=== PATIENT | male | born 1970 | race Hispanic/Latino ===

== ENCOUNTER 2016-09-09 16:31 | Emergency (ER) | payer SELFPAY ==
[2016-09-09] MEDS ORDERED: Lidocaine 1% w/Epinephrine 1:100K 30 ML VIAL ONE (17:07)
--- NOTE | 2016-09-09 17:54 | ERRECORD ---
[facility] EMERGENCY RECORD HPI ABSCESS (17:36 MBRI) CHIEF COMPLAINT: Patient presents for evaluation of swelling, Patient presents for evaluation of pain, Patient presents for evaluation of Possible abscess. HISTORIAN: History provided by patient, History provided by patient's family. LOCATION: Symptoms are localized, most severe to Left axilla. QUALITY: Pain is dull in nature, described as aching, described as throbbing. SEVERITY: Maximum severity of symptoms moderate, Currently symptoms are mild. TIME COURSE: Gradual onset of symptoms, 4, days priror to arrival, Symptoms are worsening. ASSOCIATED WITH: No associated chills, No associated drainage, No associated fever, No associated nausea, No associated proximal streaking, Associated with warmth. COMPLICATING FACTORS: No complicating factors for wound healing. EXACERBATED BY: Patient's condition exacerbated by nothing. RELIEVED BY: Patient's condition relieved by nothing, Patient's condition relieved by nothing because patient has not tried anything for relief. TETANUS: Tetanus status up to date. ROS (17:36 MBRI) CONSTITUTIONAL: Negative constitutional review of systems, Historian denies chills, denies fever. CARDIOVASCULAR: Historian denies chest pain, denies dyspnea on exertion. RESPIRATORY: Historian denies cough, denies shortness of breath. GI: Negative gastrointestinal review of systems, Historian denies abdominal pain, denies diarrhea, denies nausea, denies vomiting. MUSCULOSKELETAL: Historian denies joint redness, denies joint stiffness, denies joint swelling. Denies any musculoskeletal pain, Historian denies injury. SKIN: Historian reports cellulitis, reports induration, reports skin lesions. Left axillary area. NEUROLOGIC: Negative neurologic review of systems, Historian denies focal weakness, denies sensory changes. HEMO/LYMPHATIC: Historian denies abnormal blood clotting, denies easy bruising. PAST MEDICAL HISTORY (16:59 KMOR) MEDICAL HISTORY: No past medical history, Flu vaccine not up to date, Tetanus immunization up to date, Pneumococcal vaccine not up to date. MALE SURGICAL HISTORY: Patient has no surgical history. PSYCHIATRIC HISTORY: No previous psychiatric history. SOCIAL HISTORY: Patient denies alcohol use, Patient denies drug use, Patient has no smoking history. &a-1R&a+25V*p+0X*i7847Q*c202B*c15G*c2P*p-0X&a-25V&a+1R Name: Christiane Vanegas : 1970 M46 MedRec: [id number] AcctNum: [id number] Prepared: FriSep 10, 2016 09:28 by Interface Page 1 of 3 pMD [facility] EMERGENCY RECORD KNOWN ALLERGIES No Known Drug Allergies CURRENT MEDICATIONS (16:57 KMOR) aspirin: TABLET : Strength - 81 mg : ORAL Patient Dose: 81 mg Oral once a day. VITAL SIGNS (16:57 KMOR) VITAL SIGNS: BP: 147/100, Pulse: 112, Resp: 18, Temp: 98.4 (Oral), Pain: 8, O2 sat: 98 on Room Air, Time: 09/09/2016 16:57. PHYSICAL EXAM (17:36 MBRI) CONSTITUTIONAL: Vital Signs Reviewed, Nursing notes reviewed. RESPIRATORY CHEST: Respiratory exam included findings of no respiratory distress, Breath sounds clear, No wheezing, No rales, No rhonchi. CARDIOVASCULAR: Cardiovascular exam included findings of heart rate regular rate and rhythm, Heart sounds normal, Carotids normal. UPPER EXTREMITY: Upper extremity exam included findings of inspection normal, Range of motion normal, Motor strength normal, Radial pulse normal, no cyanosis, no clubbing, no edema. NEURO: Neuro exam findings include patient oriented to person, place and time, Speech normal, Gait normal. SKIN: Skin exam included findings of skin warm, dry, and normal in color, Pt with 2cm+ area of redness noted to the left axillary region with central area of fluctuence and ttp noted of approx 2x2cm. Pt with erythema and warmth also noted. DOCTOR NOTES (17:36 MBRI) TEXT: Pt appears stable. No findings to suggest sig illness. No indications for sepsis or concerns for bacteremia. The pt can tolerate po meds and is stable for d/c home as hospitalization is not currently necessary. Plan of care discussed with pt and questions answered. Pt was informed of reasons for follow-up and return and they stated understanding. Pt is stable for d/c home at this time. PROBLEM LIST No recorded problems DIAGNOSIS (17:34 MBRI) FINAL: PRIMARY: abscess - LEFT axilla. PRESCRIPTION No recorded prescriptions DISPOSITION PATIENT: Disposition Type: Discharge, Disposition: *Discharge Home, Condition: Improved. (17:34 MBRI) &a-1R&a+25V*p+0X*b0896Y*c202B*c15G*c2P*p-0X&a-25V&a+1R Name: Christiane Vanegas : 1970 6 MedRec: [id number] AcctNum: [id number] Prepared: FriSep 10, 2016 09:28 by Interface Page 2 of 3 pMD [facility] EMERGENCY RECORD Patient left the department. (17:48 [facility]) Galloway: SERGIO=EZ Jackson, Yenifer KMOR=EZ Jeter, Nevin MBRI=DO Oswald Matthew &a-1R&a+25V*p+0X*i2836W*c202B*c15G*c2P*p-0X&a-25V&a+1R Name: Christiane Vanegas : 1970 6 MedRec: [id number] AcctNum: [id number] Prepared: FriSep 10, 2016 09:28 by Interface Page 3 of 3 pMD MTDD
--- NOTE | 2016-09-09 17:54 | PICIS ---
[facility] EMERGENCY RECORD TRIAGE (FriSep 09, 2016 16:56 KMOR) TRIAGE NOTES: KNOT UNDER LEFT ARM X 4 DAYS. (FriSep 09, 2016 16:56 KMOR) PATIENT: NAME: Christiane Vanegas, AGE: 46, GENDER: male, : Fri1970, TIME OF GREET: FriSep 09, 2016 16:32, PREFERRED LANGUAGE: Romanian, ETHNICITY: Not or , ECODE BILLING MAP: [facility], Zip Code: [address], KG WEIGHT: 86.18, , , PERSON ID: [id number], PCP: NONE. (FriSep 09, 2016 16:56 KMOR) PHONE: , PAYMENT: SJX Self Pay. (16:58) COMPLAINT: KNOT UNDER ARM. (FriSep 09, 2016 16:56 KMOR) ADMISSION: URGENCY: 4 Non Urgent, ADMISSION SOURCE: Home, TRANSPORT: CAR, BED: WAIT. (FriSep 09, 2016 16:56 KMOR) ASSESSMENT: Assessment: A&OX4. RR EVEN AND UNLABORED., Symptoms began 4 days ago. (16:59 KMOR) PAIN: Patient complains of pain described as, aching, on a scale 0-10 patient rates pain as 8, Location UNDER LEFT ARM. (16:59 KMOR) IMMUNIZATIONS: Tetanus immunization up to date. (16:59 KMOR) SIRS SCORING: Heart Rate 55-109 (0), Temp range 96.8-101.1 (0), respiratory rate 12-24 (0), Mental Status altered: no (0), Infection or Suspected Infection: No. (16:59 KMOR) TRIAGE SCREENING: Patient denies suicidal ideation, Patient denies presence of domestic violence. (16:59 KMOR) PROVIDERS: TRIAGE NURSE: Nevin Jeter RN. (FriSep 09, 2016 16:56 KMOR) VITAL SIGNS: BP 147/100, Pulse 112, Resp 18, Temp 98.4, (Oral), Pain 8, O2 Sat 98, on Room Air, Time 09/09/2016 16:57. (16:57 KMOR) KNOWN ALLERGIES No Known Drug Allergies CURRENT MEDICATIONS (16:57 KMOR) aspirin: TABLET : Strength - 81 mg : ORAL Patient Dose: 81 mg Oral once a day. VITAL SIGNS (16:57 KMOR) VITAL SIGNS: BP: 147/100, Pulse: 112, Resp: 18, Temp: 98.4 (Oral), Pain: 8, O2 sat: 98 on Room Air, Time: 09/09/2016 16:57. NURSING ASSESSMENT: SKIN (17:00 KMOR) CONSTITUTIONAL: Patient arrives ambulatory, Gait steady, History obtained from patient, Patient appears comfortable, Patient cooperative, Patient alert, Oriented to person, place and time, Skin warm, Skin dry, Skin normal in color, Mucous membranes pink, Mucous membranes moist, Patient is well-groomed, Patient complains of Knot under arm, Abscess under left arm x4 days. PAIN: aching pain, left axilla, on a scale 0-10 patient rates pain as 8. &a-1R&a+25V*p+0X*r9300M*c202B*c15G*c2P*p-0X&a-25V&a+1R Name: Christiane Vanegas : 1970 M46 MedRec: [id number] AcctNum: [id number] Prepared: FriSep 10, 2016 09:29 by Interface Page 1 of 5 pMD [facility] EMERGENCY RECORD SKIN: Skin assessment findings include skin warm, Skin dry, Skin normal in color, Inspection findings include lesion(s), to left axilla, Description: abscess, 4cm x 4cm, Inspection findings include redness, to left axilla. NURSING PROCEDURE: DISCHARGE NOTE (17:45 JSMI) DISCHARGE: Patient discharged to home, ambulating without assistance, driving self, accompanied by other family member, Summary of Care printed/ provided, Patient requested and was provided an electronic copy of Discharge Instructions, Transition record given to patient, Discharge instructions given to patient, Simple or moderate discharge teaching performed, Prescriptions given and instructions on side effects given, Medication reconciliation form given, Above person(s) verbalized understanding of discharge instructions and follow-up care, Patient treated and evaluated by physician. NURSING PROCEDURE: INCISION AND DRAINAGE (17:33 KMOR) PATIENT IDENTIFIER: Patient actively involved in identification process, Patient's identity verified by patient stating name, Patient's identity verified by patient stating date. TIMEOUT: Prior to procedure, correct patient verified by, patient stating date, Correct procedure verified, Correct site verified, Physician performing procedure Dr. Oswald, Witnessed by Magda Rooney I & D: Incision and drainage indicated to promote healing, Incision and drainage indicated for pain control, Incision and drainage performed to the left axilla, by Dr. Oswald, small amount, of serosanguineous fluid drained, Simple dressing applied, using 4x4 dressing, packed with 1/4 inch plain packing, Last tetanus shot received less than 5 years ago. FOLLOW-UP: After procedure, patient rates pain as 0 out of 10. NOTES: Patient tolerated procedure well. ORDER DETAILS Order Name: chart element #1, Status: Active, Time: 17:33 09/09/2016, User: System, - Ordered for: DO Oswald Matthew, - Entered by: EZ Jeter Krista - [facility] Sep 09, 2016 17:33, - Quantity: 1, Order Name: chart element #4, Status: Active, Time: 17:33 09/09/2016, User: System, - Ordered for: DO Oswald Matthew, - Entered by: EZ Jeter Krista [facility] Sep 09, 2016 17:33, - Quantity: 1, Order Name: I & D, Status: Done, Time: 18:03 09/09/2016, User: Betfair, - Ordered for: DO Oswald Matthew, - Entered by: EZ Jeter Krista [facility] Sep 09, 2016 18:03, - Quantity: 1. &a-1R&a+25V*p+0X*o5340G*c202B*c15G*c2P*p-0X&a-25V&a+1R Name: Christiane Vanegas : 1970 M46 MedRec: [id number] AcctNum: [id number] Prepared: FriSep 10, 2016 09:29 by Interface Page 2 of 5 pMD [facility] EMERGENCY RECORD HPI ABSCESS (17:36 MBRI) CHIEF COMPLAINT: Patient presents for evaluation of swelling, Patient presents for evaluation of pain, Patient presents for evaluation of Possible abscess. HISTORIAN: History provided by patient, History provided by patient's family. LOCATION: Symptoms are localized, most severe to Left axilla. QUALITY: Pain is dull in nature, described as aching, described as throbbing. SEVERITY: Maximum severity of symptoms moderate, Currently symptoms are mild. TIME COURSE: Gradual onset of symptoms, 4, days priror to arrival, Symptoms are worsening. ASSOCIATED WITH: No associated chills, No associated drainage, No associated fever, No associated nausea, No associated proximal streaking, Associated with warmth. COMPLICATING FACTORS: No complicating factors for wound healing. EXACERBATED BY: Patient's condition exacerbated by nothing. RELIEVED BY: Patient's condition relieved by nothing, Patient's condition relieved by nothing because patient has not tried anything for relief. TETANUS: Tetanus status up to date. ROS (17:36 MBRI) CONSTITUTIONAL: Negative constitutional review of systems, Historian denies chills, denies fever. CARDIOVASCULAR: Historian denies chest pain, denies dyspnea on exertion. RESPIRATORY: Historian denies cough, denies shortness of breath. GI: Negative gastrointestinal review of systems, Historian denies abdominal pain, denies diarrhea, denies nausea, denies vomiting. MUSCULOSKELETAL: Historian denies joint redness, denies joint stiffness, denies joint swelling. Denies any musculoskeletal pain, Historian denies injury. SKIN: Historian reports cellulitis, reports induration, reports skin lesions. Left axillary area. NEUROLOGIC: Negative neurologic review of systems, Historian denies focal weakness, denies sensory changes. HEMO/LYMPHATIC: Historian denies abnormal blood clotting, denies easy bruising. PAST MEDICAL HISTORY (16:59 KMOR) MEDICAL HISTORY: No past medical history, Flu vaccine not up to date, Tetanus immunization up to date, Pneumococcal vaccine not up to date. MALE SURGICAL HISTORY: Patient has no surgical history. PSYCHIATRIC HISTORY: No previous psychiatric history. SOCIAL HISTORY: Patient denies alcohol use, Patient denies drug use, Patient has no smoking history. &a-1R&a+25V*p+0X*n2457I*c202B*c15G*c2P*p-0X&a-25V&a+1R Name: Christiane Vanegas : 1970 6 MedRec: [id number] AcctNum: [id number] Prepared: Shari Sep 10, 2016 09:29 by Interface Page 3 of 5 pMD [facility] EMERGENCY RECORD PHYSICAL EXAM (17:36 MBRI) CONSTITUTIONAL: Vital Signs Reviewed, Nursing notes reviewed. RESPIRATORY CHEST: Respiratory exam included findings of no respiratory distress, Breath sounds clear, No wheezing, No rales, No rhonchi. CARDIOVASCULAR: Cardiovascular exam included findings of heart rate regular rate and rhythm, Heart sounds normal, Carotids normal. UPPER EXTREMITY: Upper extremity exam included findings of inspection normal, Range of motion normal, Motor strength normal, Radial pulse normal, no cyanosis, no clubbing, no edema. NEURO: Neuro exam findings include patient oriented to person, place and time, Speech normal, Gait normal. SKIN: Skin exam included findings of skin warm, dry, and normal in color, Pt with 2cm+ area of redness noted to the left axillary region with central area of fluctuence and ttp noted of approx 2x2cm. Pt with erythema and warmth also noted. EVENTS TRANSFER: Triage to Emergency Waiting. (16:56 KMOR) Emergency Waiting to Emergency Room -05. (16:59 KMOR) Removed from Emergency Emergency Room -05. (17:48 JSMI) O2SAT INTERPRETATION (17:36 MBRI) O2SAT: Oxygen saturation interpretation: Normal. DOCTOR NOTES (17:36 MBRI) TEXT: Pt appears stable. No findings to suggest sig illness. No indications for sepsis or concerns for bacteremia. The pt can tolerate po meds and is stable for d/c home as hospitalization is not currently necessary. Plan of care discussed with pt and questions answered. Pt was informed of reasons for follow-up and return and they stated understanding. Pt is stable for d/c home at this time. INCISION AND DRAINAGE (17:36 MBRI) INCISION AND DRAINAGE: Side and/or site verified, Patient identification confirmed, Sterile procedures observed, Verbal consent obtained, Incision and drainage indicated for cutaneous abscess, There are no contraindications, 1% Lidocaine with epinephrine used, 3 mLs, Incision and drainage of axilla, on the left, simple, Incision was made over area of fluctuance, Explored for loculations, Packed with sterile gauze, Drained pus, Amount (mLs) 3, After procedure, wound dressed, After procedure, neurovascular status normal, There were no complications, Tetanus status up to date, Patient tolerated the procedure well. PROBLEM LIST No recorded problems &a-1R&a+25V*p+0X*n2422G*c202B*c15G*c2P*p-0X&a-25V&a+1R Name: Christiane Vanegas : 1970 6 MedRec: [id number] AcctNum: [id number] Prepared: FriSep 10, 2016 09:29 by Interface Page 4 of 5 pMD [facility] EMERGENCY RECORD DIAGNOSIS (17:34 MBRI) FINAL: PRIMARY: abscess - LEFT axilla. DISPOSITION PATIENT: Disposition Type: Discharge, Disposition: *Discharge Home, Condition: Improved. (17:34 MBRI) Patient left the department. (17:48 JSMI) INSTRUCTION (17:35 MBRI) DISCHARGE: ABSCESS, I AND D. FOLLOWUP: [facility], [facility], [address] [place] [address], , Follow up with Primary Care Physician as needed. SPECIAL: Please return for any further issues or concerns, we would be happy to see you. We hope you feel better soon. Follow-up with your primary physician as needed Tylenol or Advil for Pain. Remove the packing strip in 2-3 days. REturn for issues or worsening symptoms please. PRESCRIPTION No recorded prescriptions IMAGING (17:48 JSMI) *SUPPLY CHARGE SHEET: Image captured from scanner. *DISCHARGE INSTRUCTIONS RECEIPT: Image captured from scanner. ADMIN DIGITAL SIGNATURE: EZ Jeter, Nevin. (18:04 KMOR) DO Oswald Matthew. (FriSep 10, 2016 09:22 MBRI) Galloway: JSMI=EZ Jackson, Yenifer KMOR=EZ Jeter Krista MBRI=DO Oswald Matthew &a-1R&a+25V*p+0X*o7563Q*c202B*c15G*c2P*p-0X&a-25V&a+1R Name: Christiane Vanegas : 1970 6 MedRec: [id number] AcctNum: [id number] Prepared: FriSep 10, 2016 09:29 by Interface Page 5 of 5 pMD [facility] MEDICATION RECONCILIATION You were seen in the Emergency Department on: FriSep 09, 2016 KNOWN ALLERGIES No Known Drug Allergies HOME MEDICATIONS CONTINUE PRESCRIBED aspirin : TABLET : Strength - 81 mg : ORAL Continue as prescribed Patient had been takin mg Oral once a day. Notes from the emergency department Reviewed with patient &a-1R&a+25V*p+0X*t0725X*c202B*c15G*c2P*p-0X&a-25V&a+1R Name: Christiane Vanegas : 1970 M46 MedRec: [id number] AcctNum: [id number] Prepared: Shari Sep 10, 2016 09:29 by Interface pMD [facility]USY
== END 2016-09-09 17:45 | disposition home or self-care (01) ==
LOC: BURERS 16:31
DX: L02.412 Cutaneous abscess of left axilla (principal); Z79.82 Long term (current) use of aspirin
CPT/HCPCS: 10060; J2001

== ENCOUNTER 2017-07-24 18:09 | Emergency (ER) | payer SELFPAY ==
[2017-07-24] MEDS ORDERED: Ketorolac Tromethamine 30 MG/ML VIAL ONE (18:31)
[2017-07-24] MEDS ORDERED: HYDROcodone/Acetaminophen 10/325 mg Tablet ONE (18:31)
== END 2017-07-24 19:03 | disposition home or self-care (01) ==
LOC: BURERS 18:09
DX: G89.29 Other chronic pain (principal); M54.31 Sciatica, right side; Z79.82 Long term (current) use of aspirin; Z79.899 Other long term (current) drug therapy; Z79.4 Long term (current) use of insulin
CPT/HCPCS: 96372; J1885

== ENCOUNTER 2019-10-11 17:20 | Emergency (ER) | payer OTHER, SELFPAY ==
[2019-10-11] MEDS ORDERED: Diazepam 5 MG TAB ONE (18:01)
[2019-10-11] MEDS ORDERED: Ketorolac Tromethamine 60 MG/2 ML VIAL ONE (18:01)
[2019-10-11] MEDS ORDERED: HYDROcodone/Acetaminophen 10/325 mg Tablet ONE (18:01)
== END 2019-10-11 18:35 | disposition home or self-care (01) ==
LOC: BURERS 17:20
DX: M54.6 Pain in thoracic spine (principal); M54.5 Low back pain; R00.0 Tachycardia, unspecified; E11.9 Type 2 diabetes mellitus without complications; E78.5 Hyperlipidemia, unspecified; Z79.4 Long term (current) use of insulin; Z79.899 Other long term (current) drug therapy; Z79.82 Long term (current) use of aspirin
CPT/HCPCS: 96372; 99283; J1885

== ENCOUNTER 2022-04-23 12:49 | Emergency (ER) | payer MEDICAID, OTHER ==
[2022-04-23] MEDS ORDERED: HYDROcodone/Acetaminophen 5/325 mg Tablet ONE (13:28)
[2022-04-23] MEDS ORDERED: NEOMYCIN-POLYMYXIN-HC EAR SUSP 200 DROP/10 ML BOT ONE (13:28)
== END 2022-04-23 13:43 | disposition home or self-care (01) ==
LOC: BURERS 12:49
DX: H60.91 Unspecified otitis externa, right ear (principal); I10 Essential (primary) hypertension; E11.9 Type 2 diabetes mellitus without complications; E78.5 Hyperlipidemia, unspecified
CPT/HCPCS: 99282